=== PATIENT | female | born 1950 | race Caucasian/White ===

== ENCOUNTER → 2021-05-09 | Outpatient (CLI) | payer MEDICARE | END | disposition home or self-care (01) | LOC: CFH 13:57 | PROVIDERS: ATTEND Family Medicine | DX: R92.2 Inconclusive mammogram (principal); N64.9 Disorder of breast, unspecified; N63.0 Unspecified lump in unspecified breast | CPT/HCPCS: 77062; 77066; G0279 ==

== ENCOUNTER → 2021-06-28 | Outpatient (CLI) | payer MEDICARE | END | disposition home or self-care (01) | LOC: CFH 13:32 | PROVIDERS: ATTEND Family Medicine | DX: Z12.2 Encounter for screening for malignant neoplasm of respiratory organs (principal); I25.10 Atherosclerotic heart disease of native coronary artery without angina pectoris; M41.84 Other forms of scoliosis, thoracic region; Z87.891 Personal history of nicotine dependence | CPT/HCPCS: 71271 ==